=== PATIENT | female | born 1945 | race Caucasian/White ===

== ENCOUNTER → 2021-04-27 | Outpatient (CLI) | payer MEDICARE | END | disposition home or self-care (01) | LOC: LABWHC1 10:56 | PROVIDERS: ATTEND Internal Medicine Critical Care Medicine | DX: A31.0 Pulmonary mycobacterial infection (principal) | CPT/HCPCS: 87070; 87116; 87205; 87206 ==

== ENCOUNTER → 2022-06-09 | Outpatient (CLI) | payer MEDICARE ==
--- NOTE | 2022-06-10 07:16 | CT ---
EXAMINATION TYPE: CT chest wo con DATE OF EXAM: 06/09/2022 COMPARISON: Prior outside chest CT October 31, 2020 HISTORY: Pulmonary mycobacterial infection. CT DLP: 102.3 mGycm. Automated Exposure Control for Dose Reduction was Utilized. TECHNIQUE: CT scan of the thorax is performed without IV contrast. FINDINGS: LUNGS: Irregular thick-walled cavitary lesion posterior aspect right upper lobe measures 5.2 x 4.6 x 3.8 cm axial image 14 and coronal image 35 increased in size from prior outside CT just below this th ere is areas of reticulation and reticulonodular opacities redemonstrated in the right midlung. There are stable smaller cavitary lesions in the right mid lung axial image 35. There is new 3.5 x 1.5 cm bilobed cavitary lesion anterior right upper to mid lung axial image 26. Right lower lung shows small er thick-walled cavitary lesions with areas of mild to moderate linear scarring and central bronchiec tasis and areas of mucous plugging all redemonstrated without significant interval change. There is n ew 1.1 x 1.0 cm spiculated nodule central right lower lobe axial image 44. Reticular and reticulonodular opacities in the left the lung are redemonstrated. There are a few smal ler cavitary lesions somewhat thin-walled in the central left lower lung redemonstrated peripheral re ference axial image 41. Mild bronchiectasis with areas of mucous plugging redemonstrated. Scattered m ild/moderate parenchymal fibrotic changes redemonstrated. There is no pleural effusion or pneumothorax seen. The tracheobronchial tree is patent. MEDIASTINUM: Lack of IV contrast is noted to limit evaluation for mediastinal and especially hilar ad enopathy. There are no definitive new Greater than 1 cm mediastinal lymph nodes. No cardiomegaly or pericardial effusion is seen. Ascending aorta is stable measuring up to 3.4 cm in diameter. OTHER: Cholecystectomy clips are seen. Underlying scoliosis redemonstrated. IMPRESSION: Areas of reticulation and reticulonodularity redemonstrated bilaterally. Multiple cavitar y lesions greater in the right lung are redemonstrated. There is bronchiectasis and mucous plugging a gain seen. Some new and enlarging cavitary lesions in the right lung are noted. Also noted is new spi culated 1.1 cm nodule right lower lobe. Neoplasm cannot be excluded. Consider PET/CT follow-up.
== END | disposition home or self-care (01) ==
LOC: RADCTMAIN 14:16
PROVIDERS: ATTEND Internal Medicine Critical Care Medicine
DX: A31.0 Pulmonary mycobacterial infection (principal); J47.9 Bronchiectasis, uncomplicated; R91.1 Solitary pulmonary nodule
CPT/HCPCS: 71250

== ENCOUNTER → 2023-01-07 | Outpatient (CLI) | payer MEDICARE ==
--- NOTE | 2023-01-07 15:35 | CT ---
EXAMINATION TYPE: High resolution CT chest DATE OF EXAM: 01/07/2023 COMPARISON: 06/09/2022 HISTORY: 77-year-old female Pulmonary mycobacterial infection TECHNIQUE: High-resolution CT scanning of the chest with 1 mm slice thickness with 1 cm gap per HRCT protocol. No contrast was administered. Both prone and supine imaging is performed. CT DLP: 672 mGycm Automated exposure control for dose reduction was used. FINDINGS: Heart normal size without pericardial effusion. Aorta normal caliber with conventional arch vessel branching anatomy. No thoracic lymphadenopathy by CT size criteria. Redemonstrated right apical cavity measuring 6.5 cm versus 6.3 cm, previously. Mildly thickened and i rregular borders are again noted. Trace layering fluid within the cavity. Numerous additional scattered areas of nodularity, tree-in-bud opacity, an additional cavitary change along with bronchial wall thickening in bronchiectasis is demonstrated. In the medial right base, there is a 1.2 x 1.0 cm pulmonary nodule which is unchanged from prior. Add itional spiculated nodularity also relatively unchanged. One enlarging area of nodularity measuring 1 .2 cm of the posterior right base, axial image 198. Additionally, annual small subpleural cavitary change lateral left upper lobe measuring 1.2 cm, axial image 42. No pleural effusion. No change on prone imaging. No dominant groundglass. Visualized upper abdomen shows no gross abnormality. IMPRESSION: 1. FAIRLY SIMILAR EXTENSIVE BILATERAL CAVITARY, NODULAR, TREE-IN-BUD, AND BASILAR BRONCHIECTATIC JONES GES COMPARED TO 06/09/2022 IN KEEPING WITH PATIENT'S MYCOBACTERIAL INFECTION. THE DOMINANT RIGHT APIC AL CAVITY MEASURES 6.5 CM VERSUS 6.3 CM, PREVIOUSLY. TRACE LAYERING FLUID WITHIN THE CAVITY COULD REP RESENT BACTERIAL SUPERINFECTION. 2. MORE NODULAR AREAS OF OPACITY AT THE RIGHT LUNG BASE ARE SIMILAR. ONE AREA MEASURING 1.2 CM IS NEW OR ENLARGING AND SHOULD BE REASSESSED AT FOLLOW-UP.
== END | disposition home or self-care (01) ==
LOC: RADCTMAIN 12:39
PROVIDERS: ATTEND Internal Medicine Critical Care Medicine
DX: J47.9 Bronchiectasis, uncomplicated (principal); A31.0 Pulmonary mycobacterial infection; R91.8 Other nonspecific abnormal finding of lung field
CPT/HCPCS: 71250

== ENCOUNTER → 2023-08-16 | Outpatient (CLI) | payer MEDICARE ==
--- NOTE | 2023-08-18 15:53 | CT ---
EXAMINATION TYPE: CT chest wo con CT DLP: 101.7 mGycm, Automated exposure control for dose reduction was used. DATE OF EXAM: 08/16/2023 1:09 PM COMPARISON: CT chest 01/07/2023 . CLINICAL INDICATION:Female, 77 years old with history of A31.0 PULMONARY MYCOBACTERIAL INFECTION; PHH , c/o cough TECHNIQUE: Multiple axial images were obtained through the chest. Sagittal and coronal reformats were created for review. Contrast used: mL of (None if empty) Oral contrast used: (None if empty) FINDINGS: Examination limited by lack of IV contrast. Heart size upper normal without pericardial effusion. Fusiform ectasia of the ascending aorta up to 3.3 cm redemonstrated. Pulmonary arteries appear normal in size. No enlarged mediastinal nodes. Multiple small radiodensities again seen within the mediasti num, may represent sequela of prior surgery or trauma. Unremarkable chest wall soft tissues. No axillary adenopathy. Central airways are patent. Mild bilateral bronchiectatic changes, greatest in the lower lobes, simil ar to previous. Lung parenchyma: Relatively large cavitary lesion at the right lung apex appears essentially unchange d in morphology, and when measured in a similar fashion as the prior exam, is about 6.2 cm in greates t dimension versus 6.5 cm before. No significant layering fluid is currently seen. There is some inte rnal nodular debris again noted. An approximately 3 cm cavitary lesion in the lateral right lower lobe image [address] able in size and again shows a similar small fluid level. Similar size and overall configuration of a 3.3 cm cavitary lesion in the anterior right lung image 2 4, with slightly greater layering fluid seen within which appears slightly complex. In the medial rig ht lung base a stable solid appearing 1.2 cm nodule on image 40. A focus of previously enlarging nodularity in the posterior right lung base which was 1.2 cm appears diminished with nonmeasurable residual opacity here. Multiple other cavitary and nodular densities ar e redemonstrated throughout the right lung, and appear stable. In the left upper lobe, small scattered reticulonodular and tree-in-bud opacities appear generally un changed. Scattered reticulonodular, tree-in-bud, and a few cavitary small nodules in the left lower l obe appear essentially stable. There are no new or enlarging pulmonary lesions seen bilaterally. No p leural effusion or pneumothorax. Visualized upper abdomen shows cholecystectomy clips and aortic calcifications. No acute or concernin g abnormality. Relatively prominent S-shaped thoracolumbar scoliosis and mild degenerative changes again noted witho ut an acute abnormality seen. IMPRESSION: 1. Redemonstration of extensive bilateral cavitary, nodular, tree-in-bud, and bibasilar bronchiectat ic changes compared to the prior study, likely related to known mycobacterial infection. 2. The dominant right apical cavitary lesion (6.2 cm) appears similar in morphology, possibly minima lly smaller without significant layering fluid seen at this time. 3. A 3.3 cm cavitary lesion in the anterior right lung appears stable in size and morphology, with s lightly increased layering fluid possibly related to superinfection. 4. The previously new 1.2 cm nodular density in the right lung base has diminished, with nonmeasurab le residual density here which may represent scarring. 5. Other pulmonary lesions bilaterally show no significant interval change. 6. Other chronic and likely incidental findings, as described above.
== END | disposition home or self-care (01) ==
LOC: RADCTMAIN 12:51
PROVIDERS: ATTEND Internal Medicine Critical Care Medicine
DX: J98.4 Other disorders of lung (principal); A31.0 Pulmonary mycobacterial infection; R05.9 Cough, unspecified
CPT/HCPCS: 71250

== ENCOUNTER → 2024-09-10 | Outpatient (CLI) | payer MEDICARE ==
--- NOTE | 2024-09-10 15:26 | BD ---
EXAMINATION TYPE: Axial Bone Density DATE OF EXAM: 09/10/2024 CLINICAL HISTORY: 78 years old Female. ICD-10 CODE: M81.0 AGE-RELATED OSTEOPOROSIS , Additional His tory: Height: 61.5 Weight: 88 FRAX RISK QUESTIONS: Family History (Parent hip fracture): no History of Fracture in Adulthood: no Secondary Osteoporosis: no RISK FACTORS HISTORY OF: Surgery to Spine/Hip(right/left)/Wrist (right/left): no MEDICATIONS: Thyroid Medications: yes Which medication: Synthroid How Lon+ years Osteoporosis Medications: yes Which medication: Evista How Lon+years EXAM MEASUREMENTS: Bone mineral densitometry was performed using the [employer] System. Bone mineral density as measured about the Lumbar spine is: ----- L1-L4(G/cm2): 0.812 T Score Values are as follows: ----- L1: -3.2 ----- L2: -3.6 ----- L3: -2.9 ----- L4: -2.8 ----- L1-L4: -3.1 Z Score Values are as follows: ----- L1: -0.6 ----- L2: -0.9 ----- L3: -0.3 ----- L4: -0.2 ----- L1-L4: -0.4 Bone mineral density baseline Bone mineral density about the R hip (g/cm2): 0.611 Bone mineral density about the L hip (g/cm2): 0.648 T Score values are as follows: -----R Neck: -2.7 -----L Neck: -2.9 -----R Total: -3.1 -----L Total: -2.9 Z Score values are as follows: -----R Neck: -0.2 -----L Neck: -0.4 -----R Total: -0.7 -----L Total: -0.4 Bone mineral density baseline FRAX%s: The graph provided illustrates a 16.6% chance for a major osteoporotic fx and a 7.0% chance f or the hips probability for fx in 10 years time. IMPRESSION: Osteoporosis (T Score less than -2.5). There is increased fracture risk and therapy is usually indicated based on age. Re-Screen 1-2 years. NOTE: T-SCORE=SD OF THE YOUNG ADULT MEAN. [facility], , 09/10/2024 3:24 PM
--- NOTE | 2024-09-11 08:10 | MM ---
Reason for Exam: Screening (asymptomatic). Last mammogram was performed 1 year(s) and 1 month(s) ago. Patient History: Menarche at age 17. First Full-Term at age 23. Postmenopausal. Patient has history of breast feeding. Risk Values: Stephanie 5 year model risk: 1.4%. NCI Lifetime model risk: 2.9%. Prior Study Comparison: 06/18/2022 Bilateral Screening Mammogram, Unknown. 08/15/2023 Bilateral Screening Mammogram, Unknown. Tissue Density: The breasts are heterogeneously dense, which may obscure small masses. Findings: Analyzed By CAD. Biopsy clip in the left breast is redemonstrated. Single benign-appearing round calcification right breast again seen. Benign vascular calcification the right breast is noted. There is no suspicious new group of microcalcifications or new suspicious mass in either breast. Overall Assessment: Benign, BI-RAD 2 Management: Screening Mammogram of both breasts in 1 year. . Patient should continue monthly self-breast exams. A clinical breast exam by your physician is recommended on an annual basis. This exam should not preclude additional follow-up of suspicious palpable abnormalities. Note on Stephanie scores and lifetime risk: 1. A Stephanie score greater than 3% is considered moderate risk. If this is the case, consider specialist referral to assess eligibility for a risk reducing agent. 2. If overall lifetime risk for the development of breast cancer is 20% or higher, the patient may qualify for future screening with alternating mammogram and breast MRI. [facility], , 09/11/2024 8:08 AM. Electronically signed and approved by: Johan Martin M.D.
== END | disposition home or self-care (01) ==
LOC: RADMAMWWP 14:07
PROVIDERS: ATTEND Internal Medicine Geriatric Medicine
DX: Z12.31 Encounter for screening mammogram for malignant neoplasm of breast (principal); M81.0 Age-related osteoporosis without current pathological fracture; R92.333 Mammographic heterogeneous density, bilateral breasts; Z78.0 Asymptomatic menopausal state
CPT/HCPCS: 77063; 77067; 77080